=== PATIENT | male | born 1955 | race Two or more races ===

== ENCOUNTER 2017-10-13 13:43 | Emergency (ER) | payer SELFPAY ==
[~2017-10-13] VITALS: Ht 180.3 cm; Wt 81.6 kg
[2017-10-13] MEDS ORDERED: HYDROcodone/Acetamin 10/325 tab ORAL ONE (14:15)
[2017-10-13 14:35] VITALS: BP_SYST 130; BP_SYST 140; BP_DIAS 65; BP_DIAS 68
--- NOTE | 2017-10-13 14:42 | Emergency Room Report ---
History of Present Illness General Chief Complaint: Pain Source: Patient Present Illness HPI The patient is a 62-year-old male presenting for right hip pain. He states that he had a fracture of the right hip approximately 5 months prior and had surgical fixation. He states that he was able to ambulate with a cane without pain until one week prior when he slipped and fell onto the right hip again. He states that x-rays were done which were unremarkable. He states that he has now run out of pain medication and is requesting 2 Percocets. He states that he does not need prescription as he will be seen pain management soon. Pain is a 10/10 dull ache to the right hip. Does not radiate. Worse with walking. He denies any other symptoms Allergies: Coded Allergies: No Known Allergies (Unverified , 10/13/17) Patient History Past Medical History: see triage record Pertinent Family History: none Reviewed Nursing Documentation: PMH: Agreed, PSxH: Agreed Nursing Documentation-PMH Past Medical History: No Stated History Review of Systems All Other Systems: negative except mentioned in HPI Physical Exam Vital Signs Date Time Temp Pulse Resp B/P (MAP) Pulse Ox O2 Delivery O2 Flow Rate FiO2 10/13/17 13:46 98.1 71 18 130/65 96 Room Air Sp02 EP Interpretation: reviewed, normal General Appearance: no apparent distress, alert, GCS 15, non-toxic Head: normocephalic, atraumatic Eyes: bilateral eye normal inspection, bilateral eye PERRL ENT: hearing grossly normal, normal pharynx, no angioedema, normal voice Musculoskeletal: tender - R lateral hip Neurologic: alert, oriented x3, responsive, motor strength/tone normal, sensory intact, speech normal Psychiatric: judgement/insight normal, memory normal, mood/affect normal, no suicidal/homicidal ideation Skin: normal color, no rash, warm/dry, well hydrated Medical Decision Making PA Attestation Dr. Guaman is my supervising physician. Patient management was discussed with my supervising physician Diagnostic Impression: Primary Impression: Hip pain, right ER Course The patient is a 62-year-old male presenting for right hip pain. Ddx considered include but not limited to sprain/strain, fracture, contusion, pain medication seeking PE: NAD Right hip: There's tenderness to palpation of the lateral aspect. No leg length discrepancy. Patient ambulates quickly with help of cane. No ecchymosis. No edema. The patient is given 1 [place] here for pain. He quickly became upset and is requesting to Percocet. I am unable to check CURES at this time as the website is down. He'll need to followup with his primary doctor as well as pain management. ER precautions are given Last Vital Signs Date Time Temp Pulse Resp B/P (MAP) Pulse Ox O2 Delivery O2 Flow Rate FiO2 10/13/17 14:35 98.1 18 130/65 96 Room Air 10/13/17 14:35 68 Status: improved Disposition: HOME, SELF-CARE Condition: Improved Patient Instructions: Hip Pain Additional Instructions: I discussed my findings with the patient. All questions and concerns have been answered. Treatment and medication compliance have been addressed. I advised the patient that they need to follow up with PMD in 3-5 days. Return to ED if pain remains or worsens, numbness or tingling occurs, new rash is noticed, fever is noticed, or if needed for any reason. Patient verbalized understanding of discharge instructions. Please followup with pain management as discussed DIMITRI OVERTON Oct 13, 2017 14:42
== END 2017-10-13 14:35 | disposition home or self-care (01) ==
LOC: EMR 14:10
DX: M25.551 Pain in right hip (principal); F17.209 Nicotine dependence, unspecified, with unspecified nicotine-induced disorders
CPT/HCPCS: 99282